=== PATIENT | male | born 1975 | race Caucasian/White ===

== ENCOUNTER 2018-02-26 23:33 | Emergency (ER) | payer OTHER ==
--- NOTE | 2018-02-27 00:11 | ED ---
Throat Pain/Nasal Congestion - HPI Summary HPI Summary: 43-year-old male presents with potential bug in left ear. He states he felt a felt a bug fly into his ear but since he's been in the waiting room has not felt it. Lidocaine was placed here and is irrigated and no bug came out. He denies any other complaint. No sinus congestion. No fever. - History of Current Complaint Chief Complaint: EDEarPain Time Seen by Provider: 02/27/18 00:09 - Allergies/Home Medications Allergies/Adverse Reactions: Allergies Allergy/AdvReac Type Severity Reaction Status Date / Time No Known Allergies Allergy Verified 11/29/15 20:48 PMH/Surg Hx/FS Hx/Imm Hx Endocrine/Hematology History: Denies: Hx Diabetes - Immunization History Date of Tetanus Vaccine: UTD Date of Influenza Vaccine: unk Infectious Disease History: No Infectious Disease History: Denies: Traveled Outside the [place] in Last 30 Days - Family History Known Family History: Positive: None Negative: Cardiac Disease, Hypertension, Diabetes - Social History Alcohol Use: Weekly Alcohol Amount: 3-4 at a time Substance Use Type: Reports: None Smoking Status (MU): Heavy Every Day Tobacco Smoker Review of Systems Negative: Fever Positive: Ear Ache Negative: Chest Pain All Other Systems Reviewed And Are Negative: Yes Physical Exam Triage Information Reviewed: Yes Vital Signs On Initial Exam: Initial Vitals Temp Pulse Resp BP Pulse Ox 98.3 F 82 18 115/86 97 02/26/18 23:38 02/26/18 23:38 02/26/18 23:38 02/26/18 23:38 02/26/18 23:38 Vital Signs Reviewed: Yes Appearance: Positive: Well-Appearing Skin: Positive: Warm, Dry Head/Face: Positive: Normal Head/Face Inspection Eyes: Positive: Normal, EOMI, PENELOPE, Conjunctiva Clear ENT: Positive: Pharynx normal, TMs normal Respiratory/Lung Sounds: Positive: Clear to Auscultation, Breath Sounds Present Cardiovascular: Positive: Normal, RRR Musculoskeletal: Positive: Normal Neurological: Positive: Normal Psychiatric: Positive: Normal Diagnostics - Vital Signs Vital Signs Temp Pulse Resp BP Pulse Ox 02/26/18 23:38 98.3 F 82 18 115/86 97 - Laboratory Lab Statement: Any lab studies that have been ordered have been reviewed, and results considered in the medical decision making process. EENT Course/Dx - Course Course Of Treatment: 43-year-old male presents with potential bug in left ear. He states he felt a felt a bug fly into his ear but since he's been in the waiting room has not felt it. Lidocaine was placed here and is irrigated and no bug came out. He denies any other complaint. No sinus congestion. No fever. No bug seen in the canal. TMs normal. Patient understands agrees with plan. - Differential Diagnoses Differential Diagnoses: Foreign Body, Otitis Externa, Otitis Media - Diagnoses Provider Diagnoses: Foreign body in left ear Discharge - Sign-Out/Discharge Documenting (check all that apply): Patient Departure - Discharge Plan Condition: Good Disposition: HOME Patient Education Materials: Ear Foreign Body (ED) Referrals: Session Demario KIRK [Primary Care Provider] - Additional Instructions: Return to ED if develop any new or worsening symptoms - Billing Disposition and Condition Condition: GOOD Disposition: Home
[2018-02-27 00:30] VITALS: BP 119/75
== END 2018-02-27 00:28 | disposition home or self-care (01) ==
LOC: ED 23:33
DX: T16.2XXA Foreign body in left ear, initial encounter (principal); X58.XXXA Exposure to other specified factors, initial encounter; Y92.9 Unspecified place or not applicable
CPT/HCPCS: 99281